=== PATIENT | male | born 1950 | race African-American/Black ===

== ENCOUNTER 2018-09-28 20:03 | Emergency (ER) | payer BC, MEDICAID, OTHER ==
[~2018-09-28] VITALS: Ht 180.3 cm; Wt 108.9 kg
[~2018-09-28 20:03] MED LIST: AMLO10TA4 PO; ENAL20TA PO; ESOM40EC PO; SIMV20TA6 PO
[2018-09-28 20:14] VITALS: BP 162/98
--- NOTE | 2018-09-28 20:40 | NUR ---
68 YO M BIB SELF PRESENTS TO ED C/O 12/19 RIGHT UPPER MOLAR PAIN X 3 DAYS. PT STATES HE PLANS ON GOING TO [facility] ON SUNDAY BUT CAN NO LONGER HANDLE THE PAIN. PT DENIES FEVER OR ANY OTHER S/SX. -- PT AWAKE, ALERT, CALM, COOPERATIVE. ANSWERS QUESTIONS APPROPRIATELY. BEHAVIOR AGE APPROPRIATE. -- SKIN PINK, WARM, DRY. BREATHING EVEN, UNLABORED. PMH-- DM, HTN, HYPERLIPIDEMIA, GERD
[2018-09-28] MEDS ORDERED: KETOROLAC 15 MG/ML VIAL IM ONE (20:55)
[2018-09-28] MEDS ORDERED: traMADol 50 MG TAB PO ONE (20:55)
--- NOTE | 2018-09-28 21:00 | NUR ---
DR. DUDLEY EVALUATING AT BEDSIDE.
[2018-09-28] MEDS ORDERED: BUPIVACAINE-MPF/EPI 0.25% 30 ML VIAL INJ ONE (21:15)
[2018-09-28 21:30] VITALS: BP 131/88
--- NOTE | 2018-09-28 21:30 | NUR ---
Patient discharged with v/s stable. Pt states pain decreased to 6/10 and is managable. Written and verbal after care instructions given and explained. Patient alert, oriented and verbalized understanding of instructions. Ambulatory with steady gait. All questions addressed prior to discharge. ID band removed. Patient advised to follow up with PMD. Rx of Penicillin given. Patient educated on indication of medication including possible reaction and side effects. Opportunity to ask questions provided and answered.
== END 2018-09-28 21:30 | disposition home or self-care (01) ==
LOC: MED 20:03
DX: K08.89 Other specified disorders of teeth and supporting structures (principal); E11.9 Type 2 diabetes mellitus without complications; K21.9 Gastro-esophageal reflux disease without esophagitis; I10 Essential (primary) hypertension; E78.5 Hyperlipidemia, unspecified; Z79.899 Other long term (current) drug therapy
CPT/HCPCS: 82948; 96372; 99283; J1885; J3490

== ENCOUNTER 2019-01-27 07:11 | Emergency (ER) | payer OTHER, BC ==
[~2019-01-27] VITALS: Ht 182.9 cm; Wt 111.1 kg
[2019-01-27 07:14] VITALS: BP 131/97
--- NOTE | 2019-01-27 07:32 | NUR ---
68 Y/O MALE PRESENTING WITH C/C OF ABDOMINAL DISCOMFORT IN ALL QUADRANTS AND DIARRHEA X 4 DAYS. PER PATIENT ALSO WITH COUGH AND FLU LIKE SYMPTOMS. DENIES N/V. SIDE RAIL X1. LUNG SOUNDS CLEAR; PT WITH COUGH WITH WHITE PHLEMG.
--- NOTE | 2019-01-27 07:40 | NUR ---
MD AT BEDSIDE EVALUATING PATIENT
[2019-01-27 07:59] VITALS: BP 131/97
--- NOTE | 2019-01-27 07:59 | NUR ---
Patient discharged with v/s stable. Written and verbal after care instructions given and explained. Patient alert, oriented and verbalized understanding of instructions. Ambulatory with steady gait. All questions addressed prior to discharge. ID band removed. Patient advised to follow up with PMD. Rx of ROBITUSSIN, ACETAMINOPHEN AND SUDAFED given. Patient educated on indication of medication including possible reaction and side effects. Opportunity to ask questions provided and answered.
== END 2019-01-27 07:59 | disposition home or self-care (01) ==
LOC: MED 07:11
DX: J06.9 Acute upper respiratory infection, unspecified (principal); E11.9 Type 2 diabetes mellitus without complications; K21.9 Gastro-esophageal reflux disease without esophagitis; I10 Essential (primary) hypertension; F17.210 Nicotine dependence, cigarettes, uncomplicated; Z79.899 Other long term (current) drug therapy
CPT/HCPCS: 82948; 99282

== ENCOUNTER 2019-04-27 14:57 | Emergency (ER) | payer OTHER, BC ==
[~2019-04-27] VITALS: Ht 182.9 cm; Wt 108.9 kg
[~2019-04-27 14:57] MED LIST changes: +SIMV-30 PO; -SIMV20TA6 PO
[2019-04-27 15:09] VITALS: BP 130/110
[2019-04-27] MEDS: KETOROLAC 30 MG/ML VIAL IVP ONE (15:42)
[2019-04-27 15:55] LABS: APPEARANCE,URINE CLEAR (CLEAR); BILIRUBIN,URINE NEGATIVE (NEGATIVE); BLOOD, URINE NEGATIVE (NEGATIVE); COLOR,URINE YELLOW (YELLOW); LEUKOCYTE ESTERASE ,URINE TRACE (NEGATIVE); NITRITE, URINE NEGATIVE (NEGATIVE); PH,URINE 6.5 (5.0-9.0); UGLUCOSE NEGATIVE (NEGATIVE)
[2019-04-27 15:59] LABS: BASOPHILS # (AUTO) 0.2 K/uL (0.00-0.22); BASOPHILS % (AUTO) 2.2 % (0.0-2.0); EOSINOPHILS # (AUTO) 0.1 K/uL (0-0.4); EOSINOPHILS % (AUTO) 0.8 % (0.0-4.0); HEMATOCRIT 37.7 % (36-52); HEMOGLOBIN 12.8 g/dL (12.0-18.0); LYMPHOCYTES # (AUTO) 1.2 K/uL (2.0-11.5); LYMPHOCYTES % (AUTO) 15.3 % (20.5-51.1); MEAN CORPUSCULAR HEMOGLOBIN 32 pg (27-31); MEAN CORPUSCULAR HGB CONC 34 g/dL (33-37); MEAN CORPUSCULAR VOLUME 92.6 fL (80-94); MONOCYTES # (AUTO) 0.6 K/uL (0.8-1.0); MONOCYTES % (AUTO) 7.7 % (1.7-9.3); NEUTROPHILS # (AUTO) 5.7 K/uL (1.8-7.7); PLATELET COUNT (AUTO) 254 K/uL (140-450); RED BLOOD CELL COUNT(AUTO) 4.07 MIL/uL (4.20-6.10); RED CELL DISTRIBUTION WIDTH 13.4 % (11.6-13.7); WHITE BLOOD COUNT (AUTO) 7.6 K/uL (4.8-10.8)
[2019-04-27 16:12] LABS: CALCIUM OXALATE CRYSTALS,UR None Seen /HPF (None Seen); RBC,URINE NONE SEEN /HPF (0-5); TRICHOMONAS,URINE None Seen /HPF (None Seen); WBC,URINE 0-5 /HPF (0-5); YEAST,URINE None Seen /HPF (None Seen)
[2019-04-27 16:17] LABS: PROTHROMBIN TIME 9.4 secs (10.8-13.4)
[2019-04-27 16:20] LABS: ALBUMIN 3.8 g/dL (3.4-5.0); ANION GAP 18.4 (8-16); CARBON DIOXIDE 22.3 mmol/L (21-32); CREATININE 0.8 mg/dL (0.6-1.3); POTASSIUM 3.7 mmol/L (3.5-5.1); TOTAL BILIRUBIN 0.2 mg/dL (0.0-1.0)
[2019-04-27] MEDS ORDERED: VANCOMYCIN 1,000 MG in DEXTROSE 5% 250 ML IV ONE (16:30)
[2019-04-27] MEDS ORDERED: VANCOMYCIN 1,000 MG VIAL ONE (17:52)
[2019-04-27] MEDS: VANCOMYCIN 1,000 MG in DEXTROSE 5% 250 ML IV ONE (17:59)
[2019-04-27 18:53] VITALS: BP 115/66
== END 2019-04-27 18:53 | disposition home or self-care (01) ==
LOC: MED 14:57
DX: L03.116 Cellulitis of left lower limb (principal); L03.119 Cellulitis of unspecified part of limb; E13.8 Other specified diabetes mellitus with unspecified complications; I11.0 Hypertensive heart disease with heart failure; Z79.899 Other long term (current) drug therapy; F17.210 Nicotine dependence, cigarettes, uncomplicated
CPT/HCPCS: 36415; 71045; 71250; 73590; 80053; 81001; 83605; 83880; 84484; 85025; 85610; 85730; 87040; 87086; 93005; 96365; 96375; 99285; J1885; J3370; Q0092

== ENCOUNTER 2020-07-09 04:35 | Emergency (ER) | payer OTHER, BC ==
[~2020-07-09] VITALS: Ht 182.9 cm; Wt 113.4 kg
[~2020-07-09 04:35] MED LIST changes: -AMLO10TA4 PO; +AMLO10TA89 PO; -ENAL20TA PO; +[UNRECOGNIZED DRUG - CODE] PO
[2020-07-09 04:41] VITALS: BP 110/63
[2020-07-09] MEDS ORDERED: ACET-6763 PO (05:23)
[2020-07-09] MEDS ORDERED: CEPH-588 PO (05:23)
[2020-07-09 05:42] VITALS: BP 110/63
== END 2020-07-09 05:42 | disposition home or self-care (01) ==
LOC: MED 04:35
DX: E11.621 Type 2 diabetes mellitus with foot ulcer (principal); Z48.00 Encounter for change or removal of nonsurgical wound dressing; I11.9 Hypertensive heart disease without heart failure; Z79.899 Other long term (current) drug therapy
CPT/HCPCS: 99283

== ENCOUNTER 2020-08-13 15:55 | Inpatient (IN) | payer OTHER, BC ==
[~2020-08-13] VITALS: Ht 180.3 cm; Wt 117.5 kg
[~2020-08-13 15:55] MED LIST changes: +ACET-6763 PO; +CEPH-588 PO
[2020-08-13 15:58] VITALS: BP 118/63
--- NOTE | 2020-08-13 16:44 | NUR ---
PT TAKEN TO BED 11 AMBULATED WITH WALKER.
--- NOTE | 2020-08-13 17:01 | NUR ---
70 y/o male c/o diarrhea x 2 days. pt also reports productive cough and 8/10 headache/abd pain. denies fever, vomiting, runny nose. pt completed 2 doses of Neuravi covid vaccine and denies exposure to covid. abd in round/ascitic with hypoactive bowel sounds x4 quads. pt states that he hasnt eaten in 2 days due to not feeling well. pt has 2 diabetic ulcers on bilateral ankles. R foot has +3 pitting edema and leg is warm, red and edematous, dr solano made aware. pt a/o x4 with even and unlabored respirations. 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
--- NOTE | 2020-08-13 17:03 | NUR ---
EMT AT BEDSIDE FOR EKG
--- NOTE | 2020-08-13 17:08 | NUR ---
PRITESH LOYOLA SAMPLE COLLECTED AND GIVEN TO BABY FORMULA MIXERABHINAV HOOPER
--- NOTE | 2020-08-13 17:30 | NUR ---
20 G IV ESTABLISHED IN L AC. BLOOD SAMPLE COLLECTED VIA IV ACCESS
--- NOTE | 2020-08-13 17:36 | NUR ---
RAD AT BEDSIDE
[2020-08-13 18:03] LABS: BASOPHILS % (AUTO) 0.2 % (0.0-2.0); EOSINOPHILS % (AUTO) 0.3 % (0.0-4.0); HEMATOCRIT 35.2 % (36-52); HEMOGLOBIN 11.7 g/dL (12.0-18.0); LYMPHOCYTES # (AUTO) 0.5 K/uL (2.0-11.5); LYMPHOCYTES % (AUTO) 4.4 % (20.5-51.1); MEAN CORPUSCULAR HEMOGLOBIN 31 pg (27-31); MEAN CORPUSCULAR HGB CONC 33 g/dL (33-37); MEAN CORPUSCULAR VOLUME 94.2 fL (80-94); NEUTROPHILS # (AUTO) 10.3 K/uL (1.8-7.7); NEUTROPHILS % (AUTO) 87.1 % (42.2-75.2); PLATELET COUNT (AUTO) 237 K/uL (140-450); RED BLOOD CELL COUNT(AUTO) 3.73 MIL/uL (4.20-6.10); RED CELL DISTRIBUTION WIDTH 13.8 % (11.6-13.7); WHITE BLOOD COUNT (AUTO) 11.8 K/uL (4.8-10.8)
[2020-08-13 18:17] LABS: APPEARANCE,URINE CLEAR (CLEAR); BILIRUBIN,URINE 1+ (NEGATIVE); BLOOD, URINE 1+ (NEGATIVE); COLOR,URINE ORANGE (YELLOW); LEUKOCYTE ESTERASE ,URINE NEGATIVE (NEGATIVE); NITRITE, URINE NEGATIVE (NEGATIVE); PH,URINE 5.5 (5.0-9.0); UGLUCOSE NEGATIVE (NEGATIVE)
[2020-08-13 18:27] LABS: ALBUMIN 2.8 g/dL (3.4-5.0); ANION GAP 15.5 (8-16); CARBON DIOXIDE 24.5 mmol/L (21-32); CREATININE 1.1 mg/dL (0.6-1.3); TOTAL BILIRUBIN 0.5 mg/dL (0.0-1.0)
[2020-08-13 18:35] LABS: RBC,URINE NONE SEEN /HPF (0-5); WBC,URINE 0-5 /HPF (0-5)
[2020-08-13] MEDS ORDERED: PIPERACILLIN/TAZOBACTAM 3.375 GM in DEXTROSE 5% 50 ML IV ONE (18:45)
[2020-08-13] MEDS ORDERED: VANCOMYCIN 1,000 MG in DEXTROSE 5% 250 ML IV ONE (18:45)
[2020-08-13] MEDS ORDERED: HYDROcodone/APAP 5/325 MG 1 TAB TAB PO ONE (18:55)
[2020-08-13] MEDS ORDERED: PIPERACILLIN/TAZOBACTAM 3.375 GM VIAL IV ONE (18:59)
--- NOTE | 2020-08-13 19:25 | NUR ---
Anna qiu in ED - 08/13/20 at 1931 by [email or web address] DIABETIC ULCERS ON BILATERAL ANKLES TAKEN AND SIGNED BY DR HERNANDEZ. DOCUMENTATION IN CHART.
--- NOTE | 2020-08-13 19:25 | NUR ---
PICTURES OF DIABETIC ULCERS ON BILATERAL ANKLES TAKEN AND SIGNED BY DR HERNANDEZ. DOCUMENTATION IN CHART.
--- NOTE | 2020-08-13 19:27 | NUR ---
RECEIVED REPORT FROM DARI RIVERA FOR CONTINUITY OF CARE
--- NOTE | 2020-08-13 19:27 | NUR ---
REPORT GIVEN TO FABIÁN RIVERA, TRANSFER OF CARE AT THIS TIME
[2020-08-13] MEDS ORDERED: VANCOMYCIN 1,000 MG VIAL ONE ×2 (20:08→20:13)
--- NOTE | 2020-08-13 20:30 | NUR ---
Patient will be admitted to care of DR. KEMP. Admited to [facility]. Will go to room 106B. Belongings list completed. Report to MIGUEL DUNCAN.
[2020-08-13] MEDS ORDERED: DOCUSATE SODIUM 100 MG GELCAP PO PRN (20:50)
[2020-08-13] MEDS ORDERED: VANCOMYCIN PER PHARMACY MC PRN (20:50)
[2020-08-13] MEDS ORDERED: SODIUM PHOS / POTASSIUM PHOS 1 PKT PDR PO PRN (20:50)
[2020-08-13] MEDS ORDERED: MAG SULF 2000 MG/WATER PREMIX 50 ML IV PRN (20:50)
[2020-08-13] MEDS ORDERED: ONDANSETRON 4 MG/2 ML VIAL IM/IVP PRN (20:50)
[2020-08-13] MEDS ORDERED: POTASSIUM CHLORIDE 40 MEQ, LIDOCAINE MPF 1% 25 MG in NACL 0.9% 250 ML IV PRN (20:50)
[2020-08-13] MEDS ORDERED: ACETAMINOPHEN 325 MG TAB PO PRN (20:50)
[2020-08-13] MEDS ORDERED: HYDROcodone/APAP 5/325 MG 1 TAB TAB PO PRN (20:50)
[2020-08-13] MEDS ORDERED: DEXTROSE 50% 50 ML SYR IVP PRN (20:55)
[2020-08-13] MEDS ORDERED: INSULIN LISPRO SLIDING SCALE 100 UNITS/ML VIAL SUBQ PRN (20:55)
[2020-08-13] MEDS ORDERED: BENZONATATE 100 MG CAPLF PO PRN (21:00)
--- NOTE | 2020-08-13 21:10 | NUR ---
PATIENT TRANSFER TO UNIT VIA GURNEY. PATIENT ABLE TO TRANSFER SELF TO BED WITH ASSISTANCE. DX CELLULITIS, GEN WEAKNESS. CC ABD PAIN, NAUSEA, DIARRHEA X2 DAYS. PATIENT A/A/O X4. RESPIRATORY EVEN AND UNLABORED, ON ROOM AIR, NO SIGN OF RESPIRATORY DISTRESS NOTED. BOWEL SOUND HYPOACTIVE TO ALL QUADRANTS. ABDOMEN ROUND, FIRM, NON DISTENDED. LAST BOWEL WAS 08/13/20 AM, DIARRHEA. SKIN WARM, DRY, NON DIAPHORETIC. ACTIVE WOUND NOTED ON LEFT ANKLE AND RIGHT ANKLE, NO DRESSING NOTED. +3 EDEMA NOTED ON BILATERAL LOWER EXTREMITIES. PATIENT DENIES ANY PAIN AT THIS TIME. ABLE TO MAKE NEED KNOWN. MRSA COLLECTED. ORIENTED TO ROOM AND UNIT ROUTINE. PLAN OF CARE DISCUSSED, PATIENT VERBALIZED UNDERSTANDING. PRECAUTION IN PLACE. CALL LIGHT WITHIN REACH. WILL CONTINUE TO MONITOR. Addendum: 08/14/20 at 0015 by Ariel Westfall RN RN IV ON RIGHT AC 20G, INTACT AND PATENT, IS INFUSING VANCOMYCIN @165 ML/HR/.
[2020-08-13] MEDS: BLOOD GLUCOSE MONITORING 1 DEV DEV FS SCH (21:28)
[2020-08-13 21:30] VITALS: BP 111/69
[2020-08-13] MEDS: NACL 0.9% 1,000 ML IV SCH (22:00)
[2020-08-13 22:56] LABS: MAGNESIUM 2.2 mg/dL (1.8-2.4); PHOSPHORUS 3.1 mg/dL (2.5-4.9)
[2020-08-14] MEDS ORDERED: PIPERACILLIN/TAZOBACTAM 3.375 GM VIAL IV ONE ×2 (00:16→05:22)
[2020-08-14] MEDS: PIPERACILLIN/TAZOBACTAM 3.375 GM in DEXTROSE 5% 50 ML IV SCH ×4 (00:27→18:11)
--- NOTE | 2020-08-14 00:27 | NUR ---
PATIENT IS SLEEPING, CHEST RISE AND FALL NOTED, AROUSABLE TO VOICE. SCHEDULE MEDICATION GIVEN WITH EDUCATION. PATIENT VERBALIZED UNDERSTANDING. PRECAUTION IN PLACE. CALL LIGHT WITHIN REACH. WILL CONTINUE TO MONITOR.
--- NOTE | 2020-08-14 01:00 | NUR ---
WOUND ASSESSMENT. PATIENT DENIES ANY PAIN. 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 DIABETIC ULCER ON RIGHT LATERAL LEG, ALFONSO, NO DRAINAGE. NO SIGN OF DISTRESS NOTED. CALL LIGHT WITHIN REACH. WILL CONTINUE TO MONITOR.
--- NOTE | 2020-08-14 02:00 | NUR ---
ROUND CHECK. PATIENT IS SLEEPING, CHEST RISE AND FALL NOTED. AROUSABLE TO VOICE. NO SIGN OF RESPIRATORY DISTRESS NOTED. PRECAUTION IN PLACE. CALL LIGHT WITHIN REACH. WILL CONTINUE TO MONITOR.
[2020-08-14 04:00] VITALS: BP 126/84
--- NOTE | 2020-08-14 04:00 | NUR ---
ROUND CHECK. PATIENT IS SLEEPING, CHEST RISE AND FALL NOTED, NO SIGN OF DISTRESS NOTED. PRECAUTION IN PLACE. CALL LIGHT WITHIN REACH. WILL CONTINUE TO MONITOR.
--- NOTE | 2020-08-14 04:30 | NUR ---
NOTIFIED FROM HEADER OPERATOR, PATIENT'S TEMP 100.7. COOLING MEASURE APPLY. PATIENT DENIES ANY CHILL OR PAIN. NO OTHER CONCERNS AT THIS TIME. CALL LIGHT WITHIN REACH. WILL CONTINUE TO MONITOR.
[2020-08-14 05:28] LABS: BASOPHILS % (AUTO) 0.1 % (0.0-2.0); EOSINOPHILS % (AUTO) 0.2 % (0.0-4.0); HEMATOCRIT 32.4 % (36-52); HEMOGLOBIN 10.9 g/dL (12.0-18.0); LYMPHOCYTES # (AUTO) 0.6 K/uL (2.0-11.5); MEAN CORPUSCULAR HEMOGLOBIN 31 pg (27-31); MEAN CORPUSCULAR HGB CONC 34 g/dL (33-37); MEAN CORPUSCULAR VOLUME 93.2 fL (80-94); MONOCYTES # (AUTO) 1.1 K/uL (0.8-1.0); MONOCYTES % (AUTO) 11.8 % (1.7-9.3); NEUTROPHILS # (AUTO) 7.4 K/uL (1.8-7.7); NEUTROPHILS % (AUTO) 80.9 % (42.2-75.2); PLATELET COUNT (AUTO) 197 K/uL (140-450); RED BLOOD CELL COUNT(AUTO) 3.48 MIL/uL (4.20-6.10); RED CELL DISTRIBUTION WIDTH 14.1 % (11.6-13.7); WHITE BLOOD COUNT (AUTO) 9.2 K/uL (4.8-10.8)
[2020-08-14] MEDS: MORPHINE SULFATE 2 MG/ML SYR IVP PRN (05:38)
--- NOTE | 2020-08-14 05:38 | NUR ---
PATIENT COMPLAINS PAIN 9/10 ON BILATERAL LOWER EXTREMITIES. MORPHINE PRN GIVEN ORDER WITH EDUCATION, PATIENT VERBALIZED UNDERSTANDING. CALL LIGHT WITHIN REACH. WILL CONTINUE TO MONITOR. Addendum: 08/14/20 at 0714 by Ariel Westfall RN RN RE CHECK ORAL TEMP 99.0
[2020-08-14 05:46] LABS: ANION GAP 13.1 (8-16); CARBON DIOXIDE 24.8 mmol/L (21-32); POTASSIUM 3.9 mmol/L (3.5-5.1)
[2020-08-14] MEDS: BLOOD GLUCOSE MONITORING 1 DEV DEV FS SCH ×4 (06:46→20:53)
--- NOTE | 2020-08-14 06:48 | NUR ---
BLOOD SUGAR CHECK 185. PATIENT REFUSED INSULIN COVERAGE, EDUCATED THE RISK AND BENEFIT OF MEDICATION, PATIENT VERBALIZED UNDERSTANDING AND STILL WISH TO REFUSE. NO SIGN OF DISTRESS NOTED. CALL LIGHT WITHIN REACH. WILL CONTINUE TO MONITOR. Addendum: 08/14/20 at 0650 by Ariel Westfall RN RN PATIENT IS AWAKE, ALERT AND ORIENTED X4.
--- NOTE | 2020-08-14 07:05 | NUR ---
ENDORSED PATIENT TO AM NURSE FOR CONTINUITY OF CARE. PATIENT IS STABLE.
--- NOTE | 2020-08-14 07:05 | NUR ---
RECEIVED PATIENT FROM NIGHT NURSE. PATIENT IN BED AWAKE AND ALERT. RESP EVEN AND UNLABORED ON ROOM AIR. DENIED OF ANY PAIN AT THIS TIME. LAC 20G INFUSING NS 60ML/HR. PLAN OF CARE DISCUSSED, PATIENT VERBALIZED UNDERSTANDING. HOB ELEVATED. SAFETY MEASURES IN PLACE. CALL LIGHT WITHIN REACH. WILL CONTINUE TO MONITOR.
--- NOTE | 2020-08-14 07:09 | NUR ---
PATIENT HAS BEEN SCREENED AND CATEGORIZED HIGH NUTRITION RISK. PATIENT WILL BE SEEN WITHIN 1-2 DAYS OF ADMISSION. 08/14/20 08/15/[address]
[2020-08-14 08:00] VITALS: BP 99/67
[2020-08-14] MEDS ORDERED: amLODIPine 5 MG TAB PO ONE (09:00)
[2020-08-14] MEDS ORDERED: ENALAPRIL 10 MG TAB PO ONE (09:00)
--- NOTE | 2020-08-14 09:06 | NUR ---
08/14/20 RD INITIAL ASSESSMENT COMPLETED PLEASE REFER TO NUTRITION ASSESSMENT UNDER CARE ACTIVITY FOR ESTIMATED NUTRITIONAL NEEDS. 1. CONTINUE CCHO 60 GM DI[address] TOLERATED 2. RD TO FOLLOW-UP 2-3 DAYS, HIGH RISK ALEJANDRO HARVEY RD
[2020-08-14] MEDS: ATORVASTATIN 20 MG TAB PO SCH (09:07)
[2020-08-14] MEDS: PANTOPRAZOLE 40 MG TABEC PO SCH (09:07)
--- NOTE | 2020-08-14 09:20 | NUR ---
PATIENT AWAKE AND ALERT. MORNING ROUTINE MEDICATIONS GIVEN. NORVASC AND VASOTEC HELD D/T LOW PARAMETERS. PATIENT VERBALIZED UNDERSTANDING. SKIN WARM TO TOUCH. EDEMA NOTED WITH SWELLING AND REDNESS TO BILATERAL LOWER LEGS. OPEN WOUND NOTED TO LEFT LATERAL LOWER LEG, NO ACTIVE BLEEDING OR DRAINAGE AT THIS TIME. RIGHT LATERAL LOWER LEG NOTED WITH SMALL SUPERFICIAL WOUND. PATIENT ABLE TO TURN IN BED. PLAN OF CARE DISCUSSED, PATIENT VERBALIZED UNDERSTANDING. CALL LIGHT WITHIN REACH. WILL CONTINUE TO MONITOR.
[2020-08-14] MEDS: VANCOMYCIN HCL 1.25 GM in DEXTROSE 5% 250 ML IV SCH ×2 (10:23→22:50)
--- NOTE | 2020-08-14 11:03 | NUR ---
PATIENT IN BED SLEEPING, CHEST NOTED RISING. ROUTINE IV MEDICATION GIVEN. NO NOTED DISTRESS. CALL LIGHT WITHIN REACH. WILL CONTINUE TO MONITOR.
--- NOTE | 2020-08-14 12:33 | NUR ---
BLOOD SUGAR 141, NO INSULIN GIVEN PER SLIDING SCALE. ROUTINE MEDICATION GIVEN. PATIENT TOLERATED WELL. NO NOTED DISTRESS AT THIS TIME. CALL LIGHT WITHIN REACH. WILL CONTINUE TO MONITOR.
[2020-08-14] MEDS: NACL 0.9% 1,000 ML IV SCH (13:30)
--- NOTE | 2020-08-14 14:45 | NUR ---
LEFT AC IV ACCESS INFILTRATED. IV ACCESS INSERTED TO LFA 20G USING ASEPTIC TECHNIQUE. PATIENT TOLERATED. RESP EVEN AND UNLABORED ON ROOM AIR. DENIED OF PAIN AT THIS TIME. CALL LIGHT WITHIN REACH. WILL CONTINUE TO MONITOR.
[2020-08-14 16:00] VITALS: BP 107/62
--- NOTE | 2020-08-14 16:49 | NUR ---
PATIENT IN BED SLEEPING, CHEST NOTED RISING. EASILY AWAKEN. BLOOD SUGAR 150, NO INSULIN METAL WIRE TECHNICIAN PER SLIDING SCALE. DENIED OF PAIN AT THIS TIME. CALL LIGHT WITHIN REACH. WILL CONTINUE TO MONITOR.
--- NOTE | 2020-08-14 19:32 | NUR ---
ENDORSED PATIENT TO NIGHT NURSE. PATIENT IN STABLE CONDITION.
--- NOTE | 2020-08-14 19:33 | NUR ---
RECEIVED BEDSIDE REPORT FROM DAY MIGUEL Barrientos PT AOX4 ON ROOM AIR. NO S/S RESPIRATORY DISTRESS. NO C/O PAIN AT THIS TIME. IV SITE LFA PATENT INTACT INFUSING IVF ORDERED. HAS WOUND TO L LEG WRAPPED WITH DRESSING. SAFETY MEASURES IN PLACE. CALL LIGHT WITHIN REACH. WILL CONTINUE TO MONITOR
[2020-08-14 20:00] VITALS: BP 97/60
--- NOTE | 2020-08-14 21:03 | NUR ---
BLOOD SUGAR 150. NO INSULIN COVERAGE NEEDED PER SLIDING SCALE. PT C/O SLEEPLESSNESS. MESSAGED DR. KEMP, AWAITING RESPONSE
[2020-08-14] MEDS ORDERED: ZOLPIDEM 5 MG TAB PO PRN (21:50)
[2020-08-14] MEDS ORDERED: VANCOMYCIN 1,000 MG VIAL ONE (22:30)
--- NOTE | 2020-08-14 22:50 | NUR ---
IRENA ACOSTA GIVEN FOR C/O SLEEPLESSNESS AND SCHEDULED MEDICATION ORDERED. MEDICATION EDUCATION PROVIDED. PT VERBALIZED UNDERSTANDING. NO DISTRESS NOTED. SAFETY MEASURES IN PLACE. CALL LIGHT WITHIN REACH. WILL CONTINUE TO MONITOR Addendum: 08/15/20 at 0157 by Maren Mcginnis RN SCHEDULED MEDICATION GIVEN ORDERED
[2020-08-15] MEDS: PIPERACILLIN/TAZOBACTAM 3.375 GM in DEXTROSE 5% 50 ML IV SCH ×5 (00:02→23:40)
--- NOTE | 2020-08-15 00:10 | NUR ---
SCHEDULED MEDICATION GIVEN ORDERED. MEDICATION EDUCATION PROVIDED. NO DISTRESS NOTED. CALL LIGHT WITHIN REACH. WILL CONTINUE TO MONITOR
--- NOTE | 2020-08-15 01:59 | NUR ---
PATIENT ASLEEP IN BED. RESPIRATIONS EVEN UNLABORED. NO SIGNS OF DISTRESS NOTED. IVF INFUSING WELL. CALL LIGHT WITHIN REACH. WILL CONTINUE TO MONITOR
[2020-08-15 04:00] VITALS: BP 101/68
--- NOTE | 2020-08-15 05:24 | NUR ---
SCHEDULED MEDICATION GIVEN ORDERED. MEDICATION EDUCATION PROVIDED. PT VERBALIZED UNDERSTANDING. NO DISTRESS NOTED. CALL LIGHT WITHIN REACH. WILL CONTINUE TO MONITOR
[2020-08-15 05:49] LABS: BASOPHILS % (AUTO) 0.3 % (0.0-2.0); EOSINOPHILS # (AUTO) 0.1 K/uL (0-0.4); EOSINOPHILS % (AUTO) 0.6 % (0.0-4.0); HEMATOCRIT 34.3 % (36-52); HEMOGLOBIN 11.4 g/dL (12.0-18.0); LYMPHOCYTES # (AUTO) 0.7 K/uL (2.0-11.5); MEAN CORPUSCULAR HEMOGLOBIN 31 pg (27-31); MEAN CORPUSCULAR HGB CONC 33 g/dL (33-37); MEAN CORPUSCULAR VOLUME 94.6 fL (80-94); NEUTROPHILS # (AUTO) 6.6 K/uL (1.8-7.7); PLATELET COUNT (AUTO) 223 K/uL (140-450); RED BLOOD CELL COUNT(AUTO) 3.62 MIL/uL (4.20-6.10); RED CELL DISTRIBUTION WIDTH 13.8 % (11.6-13.7); WHITE BLOOD COUNT (AUTO) 8.4 K/uL (4.8-10.8)
[2020-08-15] MEDS: NACL 0.9% 1,000 ML IV SCH ×2 (06:10→22:15)
[2020-08-15] MEDS: MORPHINE SULFATE 2 MG/ML SYR IVP PRN (06:15)
[2020-08-15] MEDS: BLOOD GLUCOSE MONITORING 1 DEV DEV FS SCH ×4 (06:24→21:43)
[2020-08-15 06:30] LABS: CARBON DIOXIDE 26.2 mmol/L (21-32)
--- NOTE | 2020-08-15 06:41 | NUR ---
BLOOD SUGAR 120. NO INSULIN COVERAGE NEEDED PER SLIDING SCALE. PRN MORPHINE GIVEN FOR C/O 7/10 CHEST PAIN, PRESSURE, NON RADIATING, INTERMITTENT. MEDICATION EDUCATION PROVIDED. PT VERBALIZED UNDERSTANDING. RESPIRATIONS EVEN UNLABORED. NO SIGNS OF DISTRESS NOTED. CALL LIGHT WITHIN REACH. WILL CONTINUE TO MONITOR
[2020-08-15 06:48] LABS: LYMPHOCYTES % (AUTO) 8.4 % (20.5-51.1); MONOCYTES % (AUTO) 12.5 % (1.7-9.3); NEUTROPHILS % (AUTO) 78.2 % (42.2-75.2)
--- NOTE | 2020-08-15 07:04 | NUR ---
ENDORSED PATIENT TO DAY RN FOR CONTINUITY OF CARE. PATIENT IS IN STABLE CONDITION
--- NOTE | 2020-08-15 07:05 | NUR ---
RECEIVED PATIENT FROM NIGHT NURSE. PATIENT IN BED SLEEPING, EASILY AWAKE, AND ALERT. RESP EVEN AND UNLABORED ON ROOM AIR. DENIED OF PAIN AT THIS TIME. PATIENT SLEPT WELL LAST NIGHT. NO NOTED DISTRESS AT THIS TIME. PLAN OF CARE DISCUSSED, PATIENT VERBALIZED UNDERSTANDING. LFA 20G INFUSING NS 60ML/HR. HOB ELEVATED. SAFETY MEASURES IN PLACE. WILL CONTINUE TO MONITOR.
[2020-08-15 07:13] LABS: ANION GAP 10.7 (8-16); POTASSIUM 3.9 mmol/L (3.5-5.1)
[2020-08-15 08:00] VITALS: BP 91/51
[2020-08-15] MEDS: PANTOPRAZOLE 40 MG TABEC PO SCH (08:21)
[2020-08-15] MEDS: ATORVASTATIN 20 MG TAB PO SCH (08:22)
--- NOTE | 2020-08-15 08:28 | NUR ---
PATIENT IN BED AWAKE AND ALERT. MORNING ROUTINE MEDICATIONS GIVEN, TOLERATED WELL. PATIENT HAS TO LEGS UPON MOVEMENT BUT TOLERABLE AT REST, NO REQUEST FOR PAIN MEDICATION AT THIS TIME. EDEMA NOTED TO BILATERAL LOWER LEGS. TWO LARGE WOUNDS TO LEFT LATERAL LOWER LEG, AFFECTED AREA WRAPPED WITH KERLIX, NOTED WITH DRIED DRAINAGE. PATIENT ABLE TO MAKE NEEDS KNOWN. CALL LIGHT WITHIN REACH. WILL CONTINUE TO MONITOR.
[2020-08-15] MEDS: VANCOMYCIN HCL 1.25 GM in DEXTROSE 5% 250 ML IV SCH ×2 (10:21→22:00)
--- NOTE | 2020-08-15 10:22 | NUR ---
PATIENT IN BED SLEEPING, CHEST NOTED RISING. RESP EVEN AND UNLABORED ON ROOM AIR. NO NOTED DISTRESS AT THIS TIME. CALL LIGHT WITHIN REACH. WILL CONTINUE TO MONITOR.
--- NOTE | 2020-08-15 12:20 | NUR ---
BLOOD GLUCOSE 168, PATIENT REFUSED INSULIN. RISKS/BENEFITS TEACHING PROVIDED. PATIENT VERBALIZED UNDERSTANDING. DRESSING CHANGED TO LEFT LATERAL LOWER LEGS DONE. PATIENT TOLERATED WELL. NO REQUEST FOR PAIN MEDICATION AT THIS TIME. CALL LIGHT WITHIN REACH. WILL CONTINUE TO MONITOR.
--- NOTE | 2020-08-15 14:35 | NUR ---
PATIENT IN BED SLEEPING, CHEST NOTED RISING. NO NOTED DISTRESS AT THIS TIME. CALL LIGHT WITHIN REACH. WILL CONTINUE TO MONITOR.
--- NOTE | 2020-08-15 17:20 | NUR ---
BLOOD SUGAR 126, NO INSULIN GIVEN PER SLIDING SCALE. PATIENT IN BED AWAKE AND ALERT. NO NOTED DISTRESS AT THIS TIME. CALL LIGHT WITHIN REACH. WILL CONTINUE TO MONITOR.
[2020-08-15 18:00] VITALS: BP 115/68
--- NOTE | 2020-08-15 19:10 | NUR ---
RECEIVED BEDSIDE REPORT FROM DAY SHIFT NURSE FOR CONTINUITY OF CARE. PT IS AWAKE AND ALERT. A&OX4. ON RA WITH BREATHING UNLABORED. AMBULATORY WITH ASSIST. FALL PRECAUTIONS IN PLACE. WOUNDS ON THE LEFT LOWER EXTREMITY WITH DRY DRESSING INTACT. SKIN IS WARM AND DRY. IV IS IN THE LEFT AC 20 GAUGE RUNNING NS AT 60 ML PER HOUR PER ORDER. PT IS STABLE AT THIS TIME. PLAN OF CARE DISCUSSED.
--- NOTE | 2020-08-15 19:22 | NUR ---
ENDORSED PATIENT TO NIGHT NURSE. PATIENT IN STABLE CONDITION.
[2020-08-15 20:00] VITALS: BP 129/66
[2020-08-15] MEDS: TRIAMCINOLONE 0.1% CRM 15 GM TUBE TP SCH (21:00)
--- NOTE | 2020-08-15 21:44 | NUR ---
PT'S BS READING IS 159. PT REFUSED INSULIN. EDUCATION WAS PROVIDED ON FOOD INTAKE TO CONTROL INSULIN. MEDICATION EDUCATION WAS ALSO PROVIDED ON IMPORTANCE OF INSULIN. PT STILL REFUSED.
--- NOTE | 2020-08-15 23:30 | NUR ---
ROUNDED ON PT. HE IS SLEEPING. IV FLUIDS ARE INFUSING. BREATHING IS UNLABORED ON RA. NO SIGNS OF PAIN. LOWER EXTREMITIES ARE ELEVATED ON PILLOWS TO REDUCE SWELLING AND DISCOMFORT. WILL CONTINUE TO MONITOR.
--- NOTE | 2020-08-16 01:30 | NUR ---
PT IS SLEEPING. NO DISTRESS NOTED. IV FLUIDS ARE INFUSING ORDERED. BREATHING IS UNLABORED. WILL CONTINUE TO MONITOR PT. URINAL EMPTIED OF 400 ML URINE. CALL LIGHT WITHIN REACH.
--- NOTE | 2020-08-16 03:30 | NUR ---
PT IS ASLEEP. NO DISTRESS NOTED. BREATHING IS UNLABORED. IV IS PATENT AND INTACT. BELONGINGS ARE WITHIN REACH. WILL CONTINUE TO MONITOR.
[2020-08-16 04:00] VITALS: BP 100/59
[2020-08-16] MEDS: PIPERACILLIN/TAZOBACTAM 3.375 GM in DEXTROSE 5% 50 ML IV SCH ×2 (05:18→12:30)
--- NOTE | 2020-08-16 05:30 | NUR ---
DRESSING ON WOUND REMOVED. PICTURES TAKEN. WOUND WAS CLEANSED WITH NS AND PATTED DRY. NEW DRESSING APPLIED. PT TOLERATING CHANGING OF DRESSING WELL. MINIMAL PAIN NOTED ON PALPATION. PT IS BACK TO SLEEP.
[2020-08-16 05:36] LABS: BASOPHILS % (AUTO) 0.4 % (0.0-2.0); EOSINOPHILS # (AUTO) 0.1 K/uL (0-0.4); EOSINOPHILS % (AUTO) 1.1 % (0.0-4.0); HEMOGLOBIN 11.1 g/dL (12.0-18.0); LYMPHOCYTES % (AUTO) 11.5 % (20.5-51.1); MEAN CORPUSCULAR HEMOGLOBIN 32 pg (27-31); MEAN CORPUSCULAR HGB CONC 34 g/dL (33-37); MEAN CORPUSCULAR VOLUME 94.3 fL (80-94); MONOCYTES % (AUTO) 12.5 % (1.7-9.3); NEUTROPHILS # (AUTO) 6.2 K/uL (1.8-7.7); NEUTROPHILS % (AUTO) 74.5 % (42.2-75.2); PLATELET COUNT (AUTO) 236 K/uL (140-450); RED CELL DISTRIBUTION WIDTH 13.8 % (11.6-13.7); WHITE BLOOD COUNT (AUTO) 8.3 K/uL (4.8-10.8)
[2020-08-16 05:44] LABS: CREATININE 0.9 mg/dL (0.6-1.3); POTASSIUM 3.9 mmol/L (3.5-5.1)
[2020-08-16] MEDS: BLOOD GLUCOSE MONITORING 1 DEV DEV FS SCH ×2 (06:16→11:27)
[2020-08-16 06:43] LABS: ANION GAP 15.2 (8-16); CARBON DIOXIDE 21.7 mmol/L (21-32)
--- NOTE | 2020-08-16 07:15 | NUR ---
ENDORSED PT TO DAY SHIFT NURSE FOR CONTINUITY OF CARE. PT IS STABLE. PLAN OF CARE DISCUSSED.
--- NOTE | 2020-08-16 07:30 | NUR ---
RECEIVED REPORT FROM AUTO RADIATOR MECHANIC RN FOR CONTINUITY OF CARE. PATIENT RESTING IN BED IN SUPINE POSITION, AWAKE. ALERT AND ORIENTED X4. IV TO LEFT FOREARM INFUSING IVF NS @ 60ML/HR. BILATERAL LOWER LEGS EDEMA. LEFT LOWER LEG OPEN WOUND COVERED WITH DRESSING. PENDING WOUND CONSULT. NO ACUTE DISTRESS NOTED. SAFETY MEASURES IN PLACE, WILL CONTINUE TO MONITOR.
[2020-08-16 08:00] VITALS: BP 111/69
[2020-08-16] MEDS: PANTOPRAZOLE 40 MG TABEC PO SCH (08:52)
[2020-08-16] MEDS: ATORVASTATIN 20 MG TAB PO SCH (08:52)
--- NOTE | 2020-08-16 08:54 | NUR ---
SCHEDULED MEDICATIONS GIVEN, EDUCATION PROVIDED, PATIENT VERBALIZED UNDERSTANDING. NO ACUTE DISTRESS NOTED, WILL CONTINUE TO MONITOR.
[2020-08-16] MEDS ORDERED: VANCOMYCIN 1,500 MG in DEXTROSE 5% 500 ML IV SCH (10:00)
--- NOTE | 2020-08-16 11:24 | NUR ---
DC FINANCIAL SERVICE REPRESENTATIVE: RECEIVED ORDER FOR SNF FOR IV ABX, PT, AND WOUND CARE. FAXED TO [facility]. WILL FOLLOW UP.
[2020-08-16] MEDS: TRIAMCINOLONE 0.1% CRM 15 GM TUBE TP SCH (11:27)
[2020-08-16] MEDS ORDERED: ZOS3.375PM IV (12:24)
[2020-08-16] MEDS ORDERED: VANC1.5V3 IV (12:24)
--- NOTE | 2020-08-16 12:37 | NUR ---
WOUND CARE PERFORMED. PHOTOS TAKEN. CLEANSE WITH NS, PATTED DRY, APPLIED ADAPTIVE DRESSING AND COVERED WITH ABD PAD, WRAPPED WITH KERLIX ROLLS. PATIENT TOLERATED WELL.
--- NOTE | 2020-08-16 13:36 | NUR ---
REPORT GIVEN TO KEILA/EMILIA OF [facility]. [phone]. ALL QUESTIONS ANSWERED.
--- NOTE | 2020-08-16 15:10 | NUR ---
DISCHARGE INSTRUCTIONS PROVIDED. DISCHARGE PAPER SIGNED, PATIENT VERBALIZED UNDERSTANDING OF THE TEACHINGS.
--- NOTE | 2020-08-16 15:15 | NUR ---
PATIENT WAS PICKED UP AND TRANSFER TO [facility]. ALL BELONGINGS TAKEN. DISCHARGE PROTOCOL FOLLOWED. IV WAS KEPT PER FACILITY STAFF REQUESTS. PATIENT IN STABLE CONDITION.
== END 2020-08-16 15:20 | DRG 602 ==
LOC: MED 15:55 → MTU 19:10
PROVIDERS: ADMIT Hospitalist; ATTEND Hospitalist
DX: L03.116 Cellulitis of left lower limb (principal); E11.00 Type 2 diabetes mellitus with hyperosmolarity without nonketotic hyperglycemic-hyperosmolar coma (NKHHC); R65.10 Systemic inflammatory response syndrome (SIRS) of non-infectious origin without acute organ dysfunction; E44.0 Moderate protein-calorie malnutrition; L03.115 Cellulitis of right lower limb; Z68.36 Body mass index [BMI] 36.0-36.9, adult; I10 Essential (primary) hypertension; E11.9 Type 2 diabetes mellitus without complications; K21.9 Gastro-esophageal reflux disease without esophagitis; I87.2 Venous insufficiency (chronic) (peripheral); Z20.822 Contact with and (suspected) exposure to COVID-19; D64.9 Anemia, unspecified; E86.0 Dehydration; Z79.899 Other long term (current) drug therapy; Z79.84 Long term (current) use of oral hypoglycemic drugs
CPT/HCPCS: 36415; 71045; 80048; 80053; 80202; 81001; 82948; 83036; 83605; 83690; 83735; 84100; 84484; 85025; 85610; 87040; 87081; 93005; 93970; 96365; 96366; 96367; 97116; 97163-GP; 97530; 99285; J1644; J1815; J2270; J2543; J3370; J7060

== ENCOUNTER 2020-10-28 10:28 | Emergency (ER) | payer OTHER, BC ==
[~2020-10-28] VITALS: Ht 180.3 cm; Wt 104.3 kg
[~2020-10-28 10:28] MED LIST changes: -CEPH-588 PO; +VANC1.5V3 IV; +ZOS3.375PM IV
[2020-10-28 10:41] VITALS: BP 161/62
--- NOTE | 2020-10-28 11:36 | NUR ---
PT TAKEN TO BED 12.
--- NOTE | 2020-10-28 11:46 | NUR ---
PATIENT PRESENTS TO ED WITH CHRONIC WOUND X 3 TO LLE . PT STATES WOUND HAS BEEN CAUSING HIM PAIN AND DISCOMFORT . DENIES N/V/D; AAOX4 WITH EVEN AND STEADY GAIT; LUNGS CLEAR BL; HR EVEN AND REGULAR; PT DENIES ANY FEVER, CP, SOB, OR COUGH AT THIS TIME; PATIENT STATES PAIN OF 3/10 AT THIS TIME; VSS; PATIENT POSITIONED FOR COMFORT; HOB ELEVATED; BEDRAILS UP X2; BED DOWN. ER MD MADE AWARE OF PT STATUS.
--- NOTE | 2020-10-28 13:45 | NUR ---
PT LEFT LOWER LEG WRAPPED WITH 4" GAUZE ROLL.
[2020-10-28] MEDS ORDERED: CEPH-588 PO (13:48)
== END 2020-10-28 14:00 | disposition home or self-care (01) ==
LOC: MED 10:28
DX: E11.622 Type 2 diabetes mellitus with other skin ulcer (principal); L97.929 Non-pressure chronic ulcer of unspecified part of left lower leg with unspecified severity; I11.0 Hypertensive heart disease with heart failure; I50.9 Heart failure, unspecified; Z79.899 Other long term (current) drug therapy; Z79.891 Long term (current) use of opiate analgesic; Z79.2 Long term (current) use of antibiotics
CPT/HCPCS: 99283